=== PATIENT | female | born 1970 | race Asian ===

== ENCOUNTER 2016-11-28 14:09 | Emergency (ER) | payer OTHER ==
[~2016-11-28] VITALS: Ht 165.1 cm; Wt 69.5 kg
[2016-11-28 14:15] VITALS: BP 142/88
[2016-11-28] MEDS ORDERED: FERR325T40 PO (14:26)
[2016-11-28] MEDS ORDERED: DiphenhydrAMINE HCL 25 MG CAPSULE PO ONE (14:45)
[2016-11-28] MEDS ORDERED: LIDOCAINE HCL/PF 1% 2 ML VIAL IM ONE (14:45)
[2016-11-28] MEDS ORDERED: CefTRIAXone SODIUM 1 GM/VIAL IM ONE (14:45)
== END 2016-11-28 15:21 | disposition home or self-care (01) ==
LOC: EMS 14:11
DX: L03.113 Cellulitis of right upper limb (principal); L08.9 Local infection of the skin and subcutaneous tissue, unspecified; T78.40XA Allergy, unspecified, initial encounter; L29.9 Pruritus, unspecified
CPT/HCPCS: 96372; 99283; J0696; J3490